=== PATIENT | male | born 1960 | race Caucasian/White ===

== ENCOUNTER 2019-01-03 20:51 | Emergency (ER) | payer OTHER ==
[~2019-01-03] VITALS: Ht 177.8 cm; Wt 123.8 kg
[2019-01-03 20:57] VITALS: Ht 177.8 cm; Wt 123.8 kg
[2019-01-03 22:18] VITALS: BP 139/75
== END 2019-01-03 22:18 | disposition home or self-care (01) ==
LOC: ED 20:51
DX: M54.5 Low back pain (principal); R03.0 Elevated blood-pressure reading, without diagnosis of hypertension
CPT/HCPCS: J1885